=== PATIENT | female | born 2000 | race Caucasian/White ===

== ENCOUNTER 2023-08-17 11:14 | Emergency (ER) | payer OTHER ==
[~2023-08-17] VITALS: Ht 167.6 cm; Wt 66.7 kg
[2023-08-17 12:08] VITALS: BP 96/57; PULSE 74; RESP 18; TEMP 97.8; O2SAT 100
[2023-08-17] MEDS ORDERED: NACL 0.9% 1,000 ML IV ONE (12:25)
[2023-08-17 13:01] LABS: BASOPHILS % (AUTO) 0.5 % (0.0-2.0); EOSINOPHILS # (AUTO) 0.1 K/uL (0-0.4); EOSINOPHILS % (AUTO) 1.4 % (0.0-4.0); HEMOGLOBIN 9.1 g/dL (12.0-16.0); LYMPHOCYTES # (AUTO) 1.6 K/uL (2.5-16.5); LYMPHOCYTES % (AUTO) 19.6 % (20.5-51.1); MEAN CORPUSCULAR HEMOGLOBIN 33 pg (27-31); MEAN CORPUSCULAR HGB CONC 35 g/dL (33-37); MEAN CORPUSCULAR VOLUME 94.1 fL (80-94); MONOCYTES # (AUTO) 0.6 K/uL (0.8-1.0); NEUTROPHILS # (AUTO) 5.7 K/uL (1.8-7.7); NEUTROPHILS % (AUTO) 71.5 % (42.2-75.2); PLATELET COUNT (AUTO) 223 K/uL (140-450); RED BLOOD CELL COUNT(AUTO) 2.76 MIL/uL (4.20-5.40); RED CELL DISTRIBUTION WIDTH 11.7 % (11.6-13.7)
[2023-08-17 13:29] LABS: ALBUMIN 3.1 g/dL (3.4-5.0); ANION GAP 10.6 (8-16); CALCIUM 8.4 mg/dL (8.5-10.1); CARBON DIOXIDE 26.9 mmol/L (21-32); CREATININE 0.7 mg/dL (0.6-1.3); POTASSIUM 3.5 mmol/L (3.5-5.1); TOTAL BILIRUBIN 0.2 mg/dL (0.0-1.0); TOTAL PROTEIN, SERUM 5.9 g/dL (6.4-8.2)
[2023-08-17] MEDS ORDERED: MEDR10TA PO ×3 (13:45→13:52)
[2023-08-17] MEDS ORDERED: FERR-147 PO (13:51)
[2023-08-17 13:54] VITALS: BP 96/57; PULSE 74; RESP 18; TEMP 97.8; O2SAT 100
== END 2023-08-17 13:54 | disposition home or self-care (01) ==
LOC: MED 11:14
DX: N94.6 Dysmenorrhea, unspecified (principal); R55 Syncope and collapse; N93.8 Other specified abnormal uterine and vaginal bleeding; Z79.899 Other long term (current) drug therapy
CPT/HCPCS: 36415; 76856; 80053; 81025; 85025; 86886; 86900; 86901; 93005; 96360; 99284; J7030; Q0092